=== PATIENT | female | born 1955 | race Two or more races ===

== ENCOUNTER 2018-04-30 16:03 | Emergency (ER) | payer SELFPAY ==
[~2018-04-30] VITALS: Ht 141 cm; Wt 75.0 kg
[2018-04-30 16:40] LABS: BASOPHILS # (AUTO) 0.11 x10^3/uL (0-0.1); BASOPHILS % (AUTO) 2 % (0-1); EOSINOPHILS # (AUTO) 0.21 x10^3/uL (0-0.4); EOSINOPHILS % (AUTO) 3 % (1-7); LYMPHOCYTES # (AUTO) 1.82 x10^3/uL (1-3.4); LYMPHOCYTES % (AUTO) 24 % (22-44); MD NO; MEAN CORPUSCULAR HEMOGLOBIN 36.5 pg (27.0-34.8); MEAN CORPUSCULAR HGB CONC 34.7 g/dL (32.4-35.8); MEAN CORPUSCULAR VOLUME 105.2 fL (80-100); MEAN PLATELET VOLUME 9.4 fL (7.4-10.4); MONOCYTES # (AUTO) 0.86 x10^3/uL (0.2-0.8); MONOCYTES % (AUTO) 11 % (2-9); NEUTROPHILS # (AUTO) 4.52 x10^3/uL (1.8-6.8); NEUTROPHILS % (AUTO) 60 % (42-75); PLATELET COUNT 103 x10^3/uL (130-400); RED BLOOD COUNT 3.65 x10^6/uL (3.82-5.3); RED CELL DISTRIBUTION WIDTH 15.4 % (9.6-15.2)
[2018-04-30 16:48] LABS: ALBUMIN 2.9 g/dL (3.4-5.0); CALCIUM 10.1 mg/dL (8.5-10.1); CHLORIDE 103 mmol/L (98-107); CREATININE 0.84 mg/dL (0.55-1.02)
--- NOTE | 2018-04-30 16:51 | NUR ---
MD Emerson at bedside, family member assisting with translation, patient in no acute distress, reports chronic dizziness, slightly worsening in the last week. PWD, VSS on room air.
[2018-04-30 16:54] LABS: ANION GAP 5 mmol/L (5-15)
--- NOTE | 2018-04-30 17:26 | NUR ---
patient going to MRI now, POC discussed with MD Remy, no acute changes prior to patient leaving unit via gurney.
[2018-04-30 17:31] LABS: TROPONIN I 0.026 ng/mL (0.000-0.045)
--- NOTE | 2018-04-30 18:01 | NUR ---
patient back to room via gurney from MRI.
--- NOTE | 2018-04-30 18:15 | NUR ---
Lab has called to update this RN that the digoxin level will be delayed r/t equipment maintenance, but that the results will be available this evening. MD Remy to be updated when he is available.
--- NOTE | 2018-04-30 18:52 | NUR ---
PT REPORT FROM JARON DONALDSON. THIS RN TO ASSUME CARE OF PT. PT RESTING COMFORTABLY ON [place]. NADN. VSS. CALL LIGHT WITHIN REACH. THIS RN TO MEDICATED PER MAY.
[2018-04-30] MEDS ORDERED: MECLIZINE CHEWABLE 25 MG TAB ONE (18:54)
[2018-04-30 18:55] VITALS: BP 109/57
[2018-04-30] MEDS ORDERED: MECLIZINE CHEWABLE 25 MG TAB PO ONE (19:00)
--- NOTE | 2018-04-30 19:30 | NUR ---
ALL RESULTS BACK. PT UP FOR RECHECK.
--- NOTE | 2018-04-30 19:45 | NUR ---
PT AMB W/ STEADY GAIT AND NOTIFIED. PT TBDC. AWAITING D/C PAPERWORK.
== END 2018-04-30 19:54 | disposition home or self-care (01) ==
LOC: ED 19:48
DX: G44.219 Episodic tension-type headache, not intractable (principal); R42 Dizziness and giddiness
CPT/HCPCS: 36415; 70551; 71045; 80048; 80162; 82040; 83880; 84484; 85025; 93005; 99284